=== PATIENT | male | born 1955 | race Caucasian/White ===

== ENCOUNTER → 2023-03-04 07:39 | Outpatient (CLI) | payer OTHER, SELFPAY ==
[2023-03-04 08:49] LABS: Hematocrit 46.3 % (41-53); Hemoglobin 15.8 g/dL (13.5-17.5); Mean Corpuscular HGB Conc 34.2 % (30-36); Mean Corpuscular Hemoglobin 31.3 PG (26-34); Mean Corpuscular Volume 91.5 fL (80-100); Platelet Count 167 X10^3/uL (150-400); Red Blood Cell Count 5.06 X10^6/uL (4.5-5.9); Red Cell Distribution Width 13.6 % (11.6-14.8); White Blood Cell Count 4.8 X10^3/uL (4.5-11.0)
[2023-03-04 09:06] LABS: Alanine Aminotransferase 27 IU/L (<50); Albumin 4.2 g/dL (3.5-5.0); Albumin Globulin Ratio 1.8 (1.0-2.8); Alkaline Phosphatase 68 U/L (38-126); Aspartate Aminotransferase 25 IU/L (17-59); BUN Creatinine Ratio 15.5 (6-22); Bilirubin Total 0.8 mg/dL (0.2-1.3); Blood Urea Nitrogen 15 mg/dL (9-20); Calcium 9.5 mg/dL (8.4-10.2); Carbon Dioxide 27 mmol/L (22-32); Chloride 101 mmol/L (98-107); Cholesterol 189 mg/dL (140-199); Estimated Glomerular Filt Rate > 60 mL/min (>60); Globulin 2.3 g/dL (1.7-4.1); Glucose 102 mg/dL (80-110); HDL Cholesterol 58 mg/dL (40-60); HEMOLYSIS < 15 (0-50); LDL Cholesterol Calculated 116 mg/dL (<100); Sodium 137 mmol/L (137-145); Total Protein 6.5 g/dL (6.3-8.2); Triglycerides 73 mg/dL (35-150)
[2023-03-04 09:10] LABS: High Sensitivity CRP - Cardiac 0.8 mg/L (1.0-3.0)
[2023-03-04 09:36] LABS: Vitamin D 25 Hydroxy (D3) 90.4 ng/mL (30.0-100.0)
== END ==
PROVIDERS: PCP Family Medicine; Referring Provider Family Medicine; Visit Provider Family Medicine
DX: E55.9 Vitamin D deficiency, unspecified (principal); E78.5 Hyperlipidemia, unspecified; I10 Essential (primary) hypertension; M10.9 Gout, unspecified
CPT/HCPCS: 36415; 80053; 80061; 82306; 84550; 85027; 86140

== ENCOUNTER → 2023-11-10 16:08 | Outpatient (CLI) | payer OTHER, SELFPAY ==
[2023-11-10 17:09] LABS: Hemoglobin A1C% w Est Avg Glu 5.8 % (4.0-6.0)
[2023-11-10 18:02] LABS: TSH w/ Reflex to FT4 3.34 uIU/mL (0.47-4.68)
[2023-11-10 18:03] LABS: Prostate Specific Antigen Scrn 6.02 ng/mL (0.1-4.0)
[2023-11-10 18:22] LABS: Vitamin B12 312 pg/mL (239-931)
== END ==
PROVIDERS: PCP Family Medicine; Referring Provider Family Medicine; Visit Provider Family Medicine
DX: Z12.5 Encounter for screening for malignant neoplasm of prostate (principal); I10 Essential (primary) hypertension; M79.671 Pain in right foot; M79.672 Pain in left foot; R97.20 Elevated prostate specific antigen [PSA]
CPT/HCPCS: 36415; 82607; 83036; 84443; G0103

== ENCOUNTER → 2024-04-12 11:46 | Outpatient (CLI) | payer OTHER, SELFPAY ==
[2024-04-12 13:19] LABS: Alanine Aminotransferase 27 IU/L (<50); Albumin 4.5 g/dL (3.5-5.0); Albumin Globulin Ratio 1.5 (1.0-2.8); Alkaline Phosphatase 77 U/L (38-126); Aspartate Aminotransferase 29 IU/L (17-59); BUN Creatinine Ratio 13.8 (6-22); Bilirubin Total 0.9 mg/dL (0.2-1.3); Blood Urea Nitrogen 13 mg/dL (9-20); Calcium 9.5 mg/dL (8.4-10.2); Carbon Dioxide 27 mmol/L (22-32); Chloride 102 mmol/L (98-107); Cholesterol 196 mg/dL (140-199); Estimated Glomerular Filt Rate > 60 mL/min (>60); Glucose 99 mg/dL (80-110); HDL Cholesterol 69 mg/dL (40-60); HEMOLYSIS < 15 (0-50); LDL Cholesterol Calculated 107 mg/dL (<100); Potassium 3.9 mmol/L (3.4-5.1); Sodium 136 mmol/L (137-145); Total Protein 7.5 g/dL (6.3-8.2); Triglycerides 102 mg/dL (35-150)
[2024-04-12 13:46] LABS: Prostate Specific Antigen Scrn 7.69 ng/mL (0.1-4.0)
[2024-04-12 15:16] LABS: Hep C Virus Ab w/Reflex Quant NEGATIVE s/c (NEGATIVE)
[2024-04-12 16:34] LABS: Hemoglobin A1C% w Est Avg Glu 5.3 % (4.0-6.0)
== END ==
PROVIDERS: PCP Family Medicine; Referring Provider Family Medicine; Visit Provider Family Medicine
DX: Z00.00 Encounter for general adult medical examination without abnormal findings (principal); R73.01 Impaired fasting glucose; I10 Essential (primary) hypertension; Z12.5 Encounter for screening for malignant neoplasm of prostate; R97.20 Elevated prostate specific antigen [PSA]; E78.5 Hyperlipidemia, unspecified; M10.9 Gout, unspecified
CPT/HCPCS: 36415; 80053; 80061; 83036; 86803; G0103

== ENCOUNTER → 2024-11-23 15:41 | Outpatient (CLI) | payer MEDICARE, OTHER, SELFPAY | LOC: LAB 15:44 | PROVIDERS: PCP Family Medicine; Referring Provider Family Medicine; Visit Provider Family Medicine | DX: Z12.5 Encounter for screening for malignant neoplasm of prostate (principal); R97.20 Elevated prostate specific antigen [PSA] | CPT/HCPCS: 36415; G0103 ==

== ENCOUNTER → 2024-12-20 11:55 | Outpatient (CLI) | payer MEDICARE, OTHER, SELFPAY | PROVIDERS: PCP Family Medicine; Visit Provider Urology | DX: R97.20 Elevated prostate specific antigen [PSA] (principal) | CPT/HCPCS: 87086 ==

== ENCOUNTER → 2025-04-13 09:15 | Outpatient (CLI) | payer MEDICARE, OTHER, SELFPAY ==
[2025-04-13 09:54] LABS: Hemoglobin A1C% w Est Avg Glu 5.7 % (4.0-6.0)
[2025-04-13 10:53] LABS: Alanine Aminotransferase 29 IU/L (<50); Albumin 4.5 g/dL (3.5-5.0); Albumin Globulin Ratio 1.6 (1.0-2.8); Alkaline Phosphatase 70 U/L (38-126); Blood Urea Nitrogen 23 mg/dL (9-20); Calcium 9.8 mg/dL (8.4-10.2); Carbon Dioxide 28 mmol/L (22-32); Chloride 100 mmol/L (98-107); Cholesterol 194 mg/dL (140-199); Estimated Glomerular Filt Rate > 60 mL/min (>60); Globulin 2.8 g/dL (1.7-4.1); Glucose 102 mg/dL (70-99); HDL Cholesterol 61 mg/dL (40-60); HEMOLYSIS < 15 (0-50); Potassium 3.9 mmol/L (3.4-5.1); Sodium 139 mmol/L (137-145); Total Protein 7.3 g/dL (6.3-8.2); Triglycerides 85 mg/dL (35-150); Uric Acid 4.7 mg/dL (3.5-8.5)
[2025-04-15 07:10] LABS: PSA, Total 5.2 ng/mL (0.0-4.0)
== END ==
PROVIDERS: Urology; PCP Family Medicine; Referring Provider Family Medicine; Visit Provider Family Medicine
DX: R73.01 Impaired fasting glucose (principal); E78.5 Hyperlipidemia, unspecified; R97.20 Elevated prostate specific antigen [PSA]
CPT/HCPCS: 36415; 80053; 80061; 83036; 84153; 84154; 84550

== ENCOUNTER → 2025-07-04 11:26 | Outpatient (CLI) | payer MEDICARE, OTHER, SELFPAY ==
[2025-07-05 07:36] LABS: PSA, Total 5.7 ng/mL (0.0-4.0)
== END ==
PROVIDERS: PCP Family Medicine; Referring Provider Urology; Visit Provider Urology
DX: N40.1 Benign prostatic hyperplasia with lower urinary tract symptoms (principal)
CPT/HCPCS: 36415; 84153; 84154